=== PATIENT | female | born 1980 | race Caucasian/White ===

== ENCOUNTER 2019-04-10 18:00 | Emergency (ER) | payer MEDICAID ==
[~2019-04-10] VITALS: Ht 157.5 cm; Wt 79.8 kg
[2019-04-10 18:19] VITALS: Ht 157.5 cm; Wt 79.8 kg
[2019-04-10 20:28] VITALS: BP 112/71
== END 2019-04-10 20:28 | disposition home or self-care (01) ==
LOC: ED 18:00
DX: M06.9 Rheumatoid arthritis, unspecified (principal)
CPT/HCPCS: J2920